=== PATIENT | female | born 1970 | race Hispanic/Latino ===

== ENCOUNTER 2018-01-17 07:09 | Day surgery (SDC) | payer BC ==
[2018-01-15 13:49] VITALS: BMI 18.3
[2018-01-17 08:05] LABS: HEMOGLOBIN 14.2 g/dL (12.0-16.0); MEAN CELL VOLUME 86.7 fl (81.0-99.0); MEAN CORPUSCULAR HGB CONC 33.4 g/dL (33.0-37.0); RBC 4.91 Mil/uL (3.80-5.20); RED CELL DISTRIBUTION WIDTH 14.7 % (11.5-14.5); WHITE BLOOD COUNT 7.2 K/uL (4.8-10.8)
[2018-01-17] MEDS ORDERED: Midazolam 2 MG/2 ML VIAL ONE (08:54)
[2018-01-17] MEDS ORDERED: Propofol 10 mg/ml Inj (20 ML) ONE (08:54)
[2018-01-17] MEDS ORDERED: Silver Nitrate Topical - Stick ONE (08:55)
[2018-01-17] MEDS ORDERED: Lactated Ringer's 1,000 ML IV ONE (09:05)
--- NOTE | 2018-01-17 09:05 | CP.SDSHP ---
Same Day Surgery H & P - History Proposed Procedure: D&C hysteroscopy/Myosure procedure Pre-Op Diagnosis: Menorrhagia; fibroid uterus - Previous Medical/Surgical History Misc: Anemia Comments: She stated Hx Anemia - Hx transfusion Previous Surgical History: D&C - Allergies Allergies: Allergies No Known Allergies Allergy (Verified 01/17/18 08:06) - Current Medications Current Medications: OCP - Physical Exam Vital Signs: Vital Signs 01/17/18 01/17/18 07:53 07:57 Temperature 98.2 F Pulse Rate 78 78 Respiratory 18 Rate Blood Pressure 102/66 O2 Sat by Pulse 97 Oximetry Neuro: WNL Heart: WNL Lungs: WNL GI: WNL - {Optional Preform as Required} Abdomen: WNL BEAD MAKER: WNL - Impression Impression: Menorrhagia / Fibroid uterus (sono done today) Pt. Evaluated Today:Candidate for Anesthesia & Procedure: Yes - Date & Time Date: 01/17/18 Time: 08:50 Short Stay Discharge - Short Stay Discharge Admitting Diagnosis/Reason for Visit: N92.0 Disposition: HOME/ ROUTINE Referrals: FAMILY PROVIDER,NO [Primary Care Provider] -
--- NOTE | 2018-01-17 09:05 | US ---
HISTORY: menorrhagia/Hx fibroid COMPARISON: None available. TECHNIQUE: Transvaginal only. Real -time technique with 2D, duplex and color Doppler FINDINGS: UTERUS: Measures 8.7 x 6.8 x 4.5 cm. Normal in size and appearance. At the fundus there are 2 fibroids suggested anteriorly 1 measures 1.6 x 1.0 x 1.0 cm. Posteriorly 1 measures 1.1 x 1.1 x 0.8 cm. Per images - inner myometrial origin with sub mucosal extension possible. ENDOMETRIUM: Measures 7 mm in diameter. Unremarkable. CERVIX: Multiple cervical/nabothian cysts are present 2 appear complex: 1.9 x 2.3 x 1.6 cm another 1.7 x 1.9 x 1.2 cm. RIGHT OVARY: Measures 2.9 x 2.9 x 1.4 cm. No solid mass. Normal flow. LEFT OVARY: Measures 3.2 x 2.9 x 2.0 cm. No solid mass. Normal flow. FREE FLUID: No significant free fluid noted. OTHER FINDINGS: None. IMPRESSION: Fundal fibroids inner myometrial to possible submucosal. Unremarkable endometrium Nabothian cysts -complex types
[2018-01-17] MEDS ORDERED: ePHEDrine 50 mg/ml Inj ONE (09:21)
[2018-01-17] MEDS ORDERED: Dexamethasone 4 mg/1 ml ONE (09:23)
--- NOTE | 2018-01-17 09:57 | PCM.SURG1 ---
Surgeon's Initial Post Op Note - Surgeon's Notes Surgeon: Dinh Tabor DO Pocket Setter: none Type of Anesthesia: General LMA Anesthesia Administered By: Dr Linares Pre-Operative Diagnosis: Menorrhagia/Fibroid uterus Operative Findings: Stenotic cervix - no endocervical lesions; endometrium - large amount of tissue/no fibroid noted Post-Operative Diagnosis: same Operation Performed: Dilation/hysteroscopy/Myosure procedure (currettage) Specimen/Specimens Removed: endometrial curretting Estimated Blood Loss: EBL {In ML}: 0 (fluid deficit 210cc) Blood Products Given: N/A Date of Surgery/Procedure: 01/17/18 Time of Surgery/Procedure: 09:00
[2018-01-17] MEDS ORDERED: HYDROmorphone 0.5 mg/0.5 ml ISec IVP PRN (09:58)
[2018-01-17] MEDS ORDERED: HYDROmorphone 0.5 mg/0.5 ml ISec ONE ×2 (10:04→10:16)
[2018-01-17] MEDS ORDERED: Acetaminophen-Codeine 300/30 mg Tab PO PRN (10:49)
[2018-01-17 11:14] VITALS: O2SAT 99
[2018-01-17 11:42] VITALS: BP 123/67; PULSE 74; RESP 20; TEMP 97.3
--- NOTE | 2018-01-18 08:39 | OP ---
PROCEDURE DATE: 01/17/2018 PREOPERATIVE DIAGNOSES: Menorrhagia and fibroid uterus. POSTOPERATIVE DIAGNOSES: Very stenotic cervix, no intracervical lesions. After careful dilatation, endometrium was noted to have large amounts of tissue, but no fibroids noted. SURGEON: Aman Tabor DO ECOLOGIST: None. ANESTHESIOLOGIST: Dr. Linares. ANESTHESIA: General LMA. OPERATIONS: Dilation, hysteroscopy,MyoSure procedure to obtain endometrial curetting. SPECIMEN: Included endometrial curetting. BLOOD LOSS: None. FLUID DEFICIT: Noted to be 210 mL. BLOOD PRODUCTS: None. DESCRIPTION OF THE PROCEDURE: The patient was brought to the operating room. She was placed in supine position. IV Ancef was given preoperatively. Compression boots were placed on both lower extremities. Once general anesthesia was obtained by Dr. Linares, she was placed in the lithotomy position. She was then draped and prepped in the usual sterile manner. Catheter was used to drain the bladder with its contents. A weighted speculum was placed in the posterior fornix of the vagina, right-angle retractor in the anterior fornix of the vagina to visualize the cervix. The cervix was grasped at the 12 o'clock position using a single-tooth tenaculum. Thereafter, attempt was made to dilate the cervix. There were some difficulties, so hysteroscope was then introduced. The endocervical canal was noted to be more toward the right side. Hysteroscope was removed. After careful dilatation using dilators, I was able to open the internal os of the cervix with gradual dilatation. I was able to then introduce the hysteroscope into the endocervical canal and into the endometrial cavity. Both the ostia were identified. Large amount of endometrial tissue noted. Using MyoSure procedure, curetting was performed circumferentially both anterior and posterior jeffrey of the uterus as well as the side jeffrey. No mass lesions were noted namely fibroids. Thereafter, all equipments were removed and accounted for. Fluid deficit was noted to be 210 mL. She was successfully reversed from general anesthesia and brought to the recovery room in stable condition. She is scheduled to follow up at the office in 2 to 3 weeks. I spoke to the that everything was fine postoperatively in the recovery room. All equipments and sponges accounted for. Aman Tabor DO [facility] # [id number]
== END 2018-01-17 11:52 | disposition home or self-care (01) ==
LOC: H.OPSURG 07:09
PROVIDERS: ATTEND Obstetrics & Gynecology
DX: N92.0 Excessive and frequent menstruation with regular cycle (principal); N80.0 Endometriosis of uterus; N88.2 Stricture and stenosis of cervix uteri; D64.9 Anemia, unspecified
CPT/HCPCS: 36415; 58558; 76830; 85027; 86850; 86860; 86870; 86900; 88305; J0690; J1100; J1170; J2001; J2250; J2405; J2704; J2765; J3010; J7030; J7120